=== PATIENT | male | born 2000 | race African-American/Black ===

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

== ENCOUNTER 2025-02-03 02:45 | Emergency (ER) | payer MEDICAID, OTHER ==
[~2025-02-03] VITALS: Ht 170.2 cm; Wt 96.6 kg
[~2025-02-03 02:45] MED LIST: albuterol
[2025-02-03 02:50] VITALS: TEMP 36.7; O2SAT 98
[2025-02-03 02:52] VITALS: O2SAT 97
[2025-02-03] MEDS ORDERED: LIDOCAINE HCL 1% 20ML VIAL INFIL ONE (04:30)
[2025-02-03 05:08] VITALS: BP 128/70; PULSE 66; RESP 17
[2025-02-03] MEDS: KETOROLAC 15MG/ML VIAL IM ONE (05:08)
[2025-02-03] MEDS ORDERED: IBUP-2028 MT (05:41)
== END 2025-02-03 05:57 | disposition home or self-care (01) ==
LOC: ER 02:45
DX: S63.257A Unspecified dislocation of left little finger, initial encounter (principal); J45.909 Unspecified asthma, uncomplicated; X58.XXXA Exposure to other specified factors, initial encounter; Y93.89 Activity, other specified; Y92.89 Other specified places as the place of occurrence of the external cause; Y99.8 Other external cause status
CPT/HCPCS: 99283; 73130; 29130; 96372; J1885; J2003